=== PATIENT | female | born 1945 | race Caucasian/White ===

== ENCOUNTER 2025-05-29 11:45 | Inpatient (IN) | payer MEDICARE, OTHER ==
[~2025-05-29] VITALS: Ht 162.6 cm; Wt 68.1 kg
[2025-05-29] MEDS: IV NORMAL SALINE 1000 ML BAG IV ONE (12:12)
[2025-05-29 12:13] LABS: PLATELET COUNT (AUTO) 237 K/uL (179-408); RED BLOOD CELL COUNT(AUTO) 4.70 MIL/uL (3.63-4.92); RED CELL DISTRIBUTION WIDTH 13.8 % (12.3-17.7); WHITE BLOOD COUNT (AUTO) 11.8 K/uL (3.8-11.8)
[2025-05-29] MEDS ORDERED: SPIR100T (12:13)
[2025-05-29] MEDS ORDERED: CELE-85 PO (12:13)
[2025-05-29] MEDS ORDERED: LOSA50TA39 PO (12:13)
[2025-05-29] MEDS ORDERED: LEVO125T8 PO (12:13)
[2025-05-29] MEDS ORDERED: METF-440 PO (12:13)
[2025-05-29] MEDS ORDERED: ROSU10TA29 PO (12:13)
[2025-05-29 12:28] LABS: CREATININE 0.8 mg/dL (0.6-1.3); SODIUM SERUM 142 mmol/L (136-145); UREA NITROGEN, BLOOD 23 mg/dL (7-18)
[2025-05-29 12:33] LABS: ASPARTATE AMINOTRANSFERASE 15 U/L (15-37); TOTAL PROTEIN, SERUM 7.2 g/dL (6.4-8.2)
[2025-05-29] MEDS ORDERED: MINERAL OIL FLEET ENEMA 133 ML BOTTLE RC ONE ×2 (13:30→15:16)
[2025-05-29] MEDS: MINERAL OIL FLEET ENEMA 133 ML BOTTLE RC ONE (13:31)
[2025-05-29] MEDS ORDERED: LIDOCAINE 2% (GLYDO= UROJET) 10 ML JELLY MM ONE (15:10)
[2025-05-29] MEDS: LIDOCAINE 2% (GLYDO= UROJET) 10 ML JELLY MM ONE (15:15)
[2025-05-29] MEDS ORDERED: AMOX-430 PO (16:41)
[2025-05-29] MEDS ORDERED: AMOXICILLIN-CLAVUL 875-125MG TABLET ONE (17:08)
[2025-05-29] MEDS: AMOXICILLIN-CLAVUL 875-125MG TABLET PO ONE (17:25)
[2025-05-29 19:56] VITALS: BP 152/65
[2025-05-29] MEDS ORDERED: ACETAMINOPHEN 325 MG TABLET PO PRN ×2 (20:00→20:53)
[2025-05-29] MEDS ORDERED: LACTULOSE 20 G/30 ML LIQUID UDC PO SCH (20:00)
[2025-05-29] MEDS ORDERED: DOCUSATE SODIUM 100 MG CAPSULE PO SCH (20:00)
[2025-05-29] MEDS ORDERED: ONDANSETRON 4 MG/2 ML VIAL IV PRN (20:00)
[2025-05-29] MEDS ORDERED: MIRALAX 17 GM POWD.PACK PO SCH (20:00)
[2025-05-29] MEDS: ATORVASTATIN 20 MG TABLET PO SCH (21:29)
[2025-05-30] MEDS ORDERED: DEXTROSE 50% 50 ML DISP.SYRIN IV PRN (00:15)
[2025-05-30] MEDS: BLOOD SUGAR DIAGNOSTIC 1 EACH STRIP VI SCH (06:39)
[2025-05-30 06:41] LABS: PLATELET COUNT (AUTO) 222 K/uL (179-408); RED BLOOD CELL COUNT(AUTO) 4.44 MIL/uL (3.63-4.92); RED CELL DISTRIBUTION WIDTH 13.5 % (12.3-17.7); WHITE BLOOD COUNT (AUTO) 10.4 K/uL (3.8-11.8)
[2025-05-30 06:59] LABS: ASPARTATE AMINOTRANSFERASE 9 U/L (15-37); CREATININE 0.7 mg/dL (0.6-1.3); SODIUM SERUM 142 mmol/L (136-145); TOTAL PROTEIN, SERUM 6.5 g/dL (6.4-8.2); UREA NITROGEN, BLOOD 14 mg/dL (7-18)
[2025-05-30] MEDS: MIRALAX 17 GM POWD.PACK PO SCH (08:54)
[2025-05-30] MEDS: SPIRONOLACTONE 50 MG TABLET PO SCH (08:54)
[2025-05-30] MEDS: LOSARTAN POTASSIUM 50 MG TABLET PO SCH (08:54)
[2025-05-30] MEDS: LACTULOSE 20 G/30 ML LIQUID UDC PO SCH (08:54)
[2025-05-30] MEDS: LEVOTHYROXINE SODIUM 125 MCG TABLET PO SCH (08:54)
[2025-05-30] MEDS: DOCUSATE SODIUM 100 MG CAPSULE PO SCH (08:54)
[2025-05-30] MEDS: INSULIN REGULAR, HUMAN 1000 UNIT/10 ML VIAL SQ PRN (08:56)
[2025-05-30] MEDS ORDERED: SPIRONOLACTONE 100 MG TABLET PO SCH (09:00)
[2025-05-30 12:01] VITALS: BP 154/69; TEMP 98.8; O2SAT 96
== END 2025-05-30 12:30 | disposition home or self-care (01) | DRG 390 ==
LOC: ER 11:45 → MEDSURG3 20:50
PROVIDERS: ADMIT Internal Medicine; ATTEND Internal Medicine
PROC: 3E1H78Z Irrigation of Lower GI using Irrigating Substance, Via Natural or Artificial Opening (ICD-10-PCS; principal; 2025-05-29)
DX: K56.41 Fecal impaction (principal); E03.9 Hypothyroidism, unspecified; K57.30 Diverticulosis of large intestine without perforation or abscess without bleeding; E11.9 Type 2 diabetes mellitus without complications; E78.5 Hyperlipidemia, unspecified; I10 Essential (primary) hypertension; Z79.890 Hormone replacement therapy; Z79.84 Long term (current) use of oral hypoglycemic drugs; Z79.899 Other long term (current) drug therapy; Z90.49 Acquired absence of other specified parts of digestive tract
CPT/HCPCS: 36415; 83605; 83690; 84100; 84484; 85025; G0378; J1815; J7040